=== PATIENT | male | born 1965 ===

== ENCOUNTER 2017-01-30 05:04 | Emergency (ER) | payer MEDICAID, OTHER ==
[2017-01-30 05:04] VITALS: BMI 33.0
[2017-01-30 05:20] VITALS: BP 150/77; PULSE 88; RESP 16; TEMP 97.6; O2SAT 97
[2017-01-30] MEDS ORDERED: Sodium Chloride 0.9% 1,000 ML IV STA (05:30)
--- NOTE | 2017-01-30 05:53 | ED PDOC ---
HPI: Back Time Seen by Provider: 01/30/17 05:13 Chief Complaint (Nursing): Back Pain Chief Complaint (Provider): Right flank pain History Per: Patient History/Exam Limitations: no limitations Onset/Duration Of Symptoms: Days (1 day) Current Symptoms Are (Timing): Still Present Pain Scale Rating Of: 7 Additional Complaint(s): Ruddy Dorantes, a 51 year old male, with a PMHx of hypertension and a cardiac arrhythmia defibrillator presents to the ED with right flank pain he has been experiencing since yesterday(01/29/2017) at 1pm. The patient states that the pain has become progressively worse and rates the pain as a 7/10 on the pain scale. The patient has been able to urinate. Denies nausea, vomiting, cough, diarrhea, shortness of breath, fever and chest pain. PMD: Aleks Michael - Risk Factors AAA Risk Factors: Pos: Hypertension Past Medical History Reviewed: Historical Data, Nursing Documentation, Vital Signs Vital Signs: Last Vital Signs Temp 97.6 F 01/30/17 05:16 Pulse 88 01/30/17 05:16 Resp 16 01/30/17 05:16 BP 150/77 01/30/17 05:16 Pulse Ox 97 01/30/17 05:16 - Medical History PMH: Cardia Arrhythmia, CHF, HTN, Hypercholesterolemia Denies: Alzheimer's Disease, Asthma, Atrial Fibrillation, Diabetes, HIV, Mitral Valve Prolapse, Peripheral Edema, Chronic Kidney Disease - Surgical History Surgical History: Back Surgery, Pacemaker (AICD/PM) - Family History Family History: States: Unknown Family Hx - Social History Current smoker - smoking cessation education provided: No Ex-Smoker (has not smoked in the last 12 months): No Alcohol: None Drugs: Denies - Immunization History Hx Tetanus Toxoid Vaccination: Yes Hx Influenza Vaccination: No Hx Pneumococcal Vaccination: Yes - Home Medications Home Medications: Ambulatory Orders Medication Instructions Recorded Atorvastatin [Lipitor] 40 mg PO HS 03/30/16 Cyclobenzaprine [Cyclobenzaprine 10 mg PO TID #30 tab 03/30/16 HCl] Metoprolol Succinate [Toprol XL] 100 mg PO DAILY 03/30/16 Naproxen [Naprosyn] 500 mg PO BID PRN #20 tablet 03/30/16 Propafenone HCl [Rythmol] 225 mg PO DAILY 03/30/16 Valsartan/Hydrochlorothiazide 1 tab PO DAILY 03/30/16 [Valsartan-Hctz 320-25 mg Tab] Ibuprofen [Motrin] 400 mg PO Q6 #30 tab 11/19/16 Ciprofloxacin [Cipro] 500 mg PO Q12 #14 tab 01/30/17 traMADol [Ultram] 50 mg PO Q6 PRN #12 tab 01/30/17 - Allergies Allergies/Adverse Reactions: Allergies Allergy/AdvReac Type Severity Reaction Status Date / Time No Known Allergies Allergy Verified 02/14/16 14:53 Review of Systems ROS Statement: Except As Marked, All Systems Reviewed And Found Negative Constitutional: Negative for: Fever Cardiovascular: Negative for: Chest Pain Respiratory: Negative for: Cough, Shortness of Breath Gastrointestinal: Negative for: Nausea, Vomiting, Diarrhea Musculoskeletal: Positive for: Other (Right flank pain) Physical Exam - Reviewed Nursing Documentation Reviewed: Yes Vital Signs Reviewed: Yes - Physical Exam Appears: Positive for: Uncomfortable Head Exam: Positive for: ATRAUMATIC, NORMOCEPHALIC Skin: Positive for: Normal Color, Warm, Dry Eye Exam: Positive for: Normal appearance, EOMI, PERRL ENT: Positive for: Normal ENT Inspection Neck: Positive for: Normal, Painless ROM, Supple Cardiovascular/Chest: Positive for: Regular Rate, Rhythm, Chest Non Tender. Negative for: Tachycardia Respiratory: Positive for: Normal Breath Sounds. Negative for: Wheezing, Respiratory Distress Gastrointestinal/Abdominal: Positive for: Normal Exam, Bowel Sounds, Soft. Negative for: Tenderness Back: Positive for: Normal Inspection. Negative for: L CVA Tenderness, R CVA Tenderness Extremity: Positive for: Normal ROM. Negative for: Tenderness, Swelling Neurologic/Psych: Positive for: Alert, Oriented - Laboratory Results Result Diagrams: 01/30/17 05:49 01/30/17 05:49 - ECG O2 Sat by Pulse Oximetry: 97 (RA) Pulse Ox Interpretation: Normal Medical Decision Making Medical Decision Makin Initial Impression: Right flank pain Initial Pain: * CT ABD & PELVIS w/o PO or IV contrast * EKG * CMP * CBC * Urine diptick * Urinalysis * NS 1000ml IV 1000 mls/hr * Toradol 10mg IV * reevaluation 0617 CT Abdomen and Pelvis Without Intravenous Contrast IMPRESSION: No acute findings. Labs reviewed no clinically significant abnormalities. Patient reports some improvement in pain. Given findings or perinephric stranding, will treat with IV rocephin. Patient will be discharged home with referral to urology and an Rx for ciproflaxin and doltram. Upon provider reevaluation patient is feeling better, is medically stable, and requires no further treatment in the ED at this time. Patient is stable for discharge. Dx: Renal Colic Condition: Stable Rx: Ciproflaxin and Ultram Referral to Urology Scribe Attestation Documented by Clari Coronel acting as a scribe for Jaiden Jim MD. Provider Attestation All medical record entries made by the Scribe were at my direction and personally dictated by me. I have reviewed the chart and agree that the record accurately reflects my personal performance of the history, physical exam, medical decision making, and the department course for this patient. I have also personally directed, reviewed, and agree with the discharge instructions and disposition. Disposition - Clinical Impression Clinical Impression: Renal colic on right side - Disposition Referrals: Yeny Jolly MD [Medical Doctor] - Aleks Michael MD [Primary Care Provider] - Disposition Time: 07:00 Condition: STABLE Prescriptions: Ciprofloxacin [Cipro] 500 mg PO Q12 #14 tab traMADol [Ultram] 50 mg PO Q6 PRN #12 tab PRN Reason: flank pain Instructions: Renal Colic (ED)
[2017-01-30 06:03] LABS: RBC URINE 1 /hpf (0-3); URINE BILIRUBIN NEGATIVE (NEGATIVE); URINE BLOOD NEGATIVE (NEGATIVE); URINE COLOR YELLOW (YELLOW); URINE GLUCOSE (UA) NEG (Normal); URINE KETONE NEGATIVE (NEGATIVE); URINE LEUKOCYTE ESTERASE NEG Leu/uL (Negative); URINE PROTEIN NEGATIVE (NEGATIVE); URINE UROBILINOGEN 0.2-1.0 mg/dL (0.2-1.0); WBC URINE < 1 /hpf (0-5)
[2017-01-30 06:15] LABS: BASO # 0.1 K/uL (0.0-0.2); BASO % 0.8 % (0.0-2.0); EOS # 0.3 K/uL (0.0-0.7); EOS % 4.2 % (0.0-4.0); LYMPH # 2.2 K/uL (1.0-4.3); MEAN CELL VOLUME 86.8 fl (80.0-94.0); MEAN CORPUSCULAR HEMOGLOBIN 28.9 pg (27.0-31.0); MEAN CORPUSCULAR HGB CONC 33.3 g/dL (33.0-37.0); MEAN PLATELET VOLUME 9.4 fl (7.2-11.7); MONO # 0.8 K/uL (0.0-0.8); NEUT # 4.2 K/uL (1.8-7.0); NRBC % 0.1 % (0.0-0.0); RED CELL DISTRIBUTION WIDTH 12.8 % (11.5-14.5); WHITE BLOOD COUNT 7.6 K/uL (4.8-10.8)
--- NOTE | 2017-01-30 06:18 | CT ---
EXAM: CT Abdomen and Pelvis Without Intravenous Contrast CLINICAL HISTORY: 51 years old, male; Pain; Abdominal pain; Flank; Right; Additional info: Renal colic TECHNIQUE: Axial computed tomography images of the abdomen and pelvis without intravenous contrast. This CT exam was performed using one or more of the following dose reduction techniques: automated exposure control, adjustment of the mA and/or kV according to patient size, and/or use of iterative reconstruction technique. Coronal and sagittal reformatted images were created and reviewed. EXAM DATE/TIME: 01/30/2017 5:29 AM COMPARISON: CT - ABD PELVIS PO IV CONTRAST 11/24/2015 12:23:19 AM FINDINGS: The liver, spleen, gallbladder and pancreas appear grossly normal on this non-contrast study. Minimal nonspecific perinephric stranding. No hydronephrosis. No obstructing calculi. Pelvic phleboliths. The bowel appears grossly normal. A normal appendix is identified coronal images 59 through 67. IMPRESSION: No acute findings.
[2017-01-30 06:23] LABS: ALB/GLOB RATIO 1.1 (1.0-2.1); ALKALINE PHOSPHATASE 93 U/L (38-126); ALT/SGPT 39 U/L (21-72); AST/SGOT 38 U/L (17-59); BILIRUBIN,TOTAL 0.4 mg/dl (0.2-1.3); BLOOD UREA NITROGEN 18 mg/dl (9-20); CALCIUM 8.8 mg/dL (8.4-10.2); CARBON DIOXIDE 27 mmol/L (22-30); CHLORIDE 101 mmol/L (98-107); GFR AFRICAN-AMERICAN > 60; GLUCOSE,RANDOM 116 mg/dL (75-110); POTASSIUM 4.1 MMOL/L (3.6-5.0); SODIUM 138 mmol/l (132-148)
[2017-01-30] MEDS ORDERED: cefTRIAXone (Rocephin) 1 gm Inj ONE (06:46)
--- NOTE | 2017-01-30 19:10 | CARD ---
APPROVED REPORT EKG Measurement Heart [id number] <Conclusion> Atrial-sensed ventricular-paced rhythm Abnormal ECG
== END 2017-01-30 08:16 | disposition home or self-care (01) ==
LOC: H.ER 05:04
DX: N23 Unspecified renal colic (principal); I50.9 Heart failure, unspecified; I10 Essential (primary) hypertension; E78.00 Pure hypercholesterolemia, unspecified; Z87.891 Personal history of nicotine dependence; Z95.0 Presence of cardiac pacemaker; Z95.810 Presence of automatic (implantable) cardiac defibrillator

== ENCOUNTER 2017-03-15 09:26 | Emergency (ER) | payer OTHER ==
[2017-03-15 09:26] VITALS: BMI 33.0
[2017-03-15 09:52] VITALS: BP 131/75; PULSE 71; RESP 18; TEMP 98.1; O2SAT 97
[2017-03-15] MEDS ORDERED: Sodium Chloride 0.9% 1,000 ML IV STA (11:02)
--- NOTE | 2017-03-15 11:04 | ED PDOC ---
HPI: Back Time Seen by Provider: 03/15/17 09:58 Chief Complaint (Nursing): Back Pain Chief Complaint (Provider): Back Pain History Per: Patient Additional Complaint(s): 51 yo male, no PMH, presents to ED with complaints of c/o recurring back pain, R flank pain. Pt seen and evaluated in the ED ~ 7 weeks ago with the same and was diagnosed with a UTI. Pt reports that the pain improved slightly with antibiotics; however, as of 3 days ago returned and is more severe. No fever or chills. no nausea or vomiting. No concerns for STI . No UTI like symptoms Past Medical History Reviewed: Nursing Documentation, Vital Signs Vital Signs: Last Vital Signs Temp 98.1 F 03/15/17 09:51 Pulse 71 03/15/17 09:51 Resp 18 03/15/17 09:51 BP 131/75 03/15/17 09:51 Pulse Ox 97 03/15/17 09:51 - Medical History PMH: Cardia Arrhythmia, CHF, HTN, Hypercholesterolemia Denies: Alzheimer's Disease, Asthma, Atrial Fibrillation, Diabetes, HIV, Mitral Valve Prolapse, Peripheral Edema, Chronic Kidney Disease - Surgical History Surgical History: Back Surgery, Pacemaker (AICD/PM) - Family History Family History: States: Unknown Family Hx - Living Arrangements Living Arrangements: With Family - Social History Current smoker - smoking cessation education provided: No Alcohol: None Drugs: Denies - Immunization History Hx Tetanus Toxoid Vaccination: Yes Hx Influenza Vaccination: No Hx Pneumococcal Vaccination: Yes - Home Medications Home Medications: Ambulatory Orders Medication Instructions Recorded Atorvastatin [Lipitor] 40 mg PO HS 03/30/16 Cyclobenzaprine [Cyclobenzaprine 10 mg PO TID #30 tab 03/30/16 HCl] Metoprolol Succinate [Toprol XL] 100 mg PO DAILY 03/30/16 Naproxen [Naprosyn] 500 mg PO BID PRN #20 tablet 03/30/16 Propafenone HCl [Rythmol] 225 mg PO DAILY 03/30/16 Valsartan/Hydrochlorothiazide 1 tab PO DAILY 03/30/16 [Valsartan-Hctz 320-25 mg Tab] Ibuprofen [Motrin] 400 mg PO Q6 #30 tab 11/19/16 Ciprofloxacin [Cipro] 500 mg PO Q12 #14 tab 01/30/17 traMADol [Ultram] 50 mg PO Q6 PRN #12 tab 01/30/17 Cyclobenzaprine [Cyclobenzaprine 10 mg PO TID #20 tab 03/15/17 HCl] Ibuprofen [Motrin] 600 mg PO Q6 #20 tab 03/15/17 - Allergies Allergies/Adverse Reactions: Allergies Allergy/AdvReac Type Severity Reaction Status Date / Time No Known Allergies Allergy Verified 03/15/17 10:04 Review of Systems ROS Statement: Except As Marked, All Systems Reviewed And Found Negative Gastrointestinal: Negative for: Nausea, Vomiting, Abdominal Pain Genitourinary Male: Negative for: Dysuria, Frequency Musculoskeletal: Positive for: Back Pain Physical Exam - Reviewed Nursing Documentation Reviewed: Yes Vital Signs Reviewed: Yes - Physical Exam Appears: Positive for: Well, Non-toxic, No Acute Distress Head Exam: Positive for: ATRAUMATIC, NORMAL INSPECTION, NORMOCEPHALIC Skin: Positive for: Normal Color, Warm, DRY Eye Exam: Positive for: EOMI, Normal appearance, PERRL ENT: Positive for: Normal ENT Inspection Neck: Positive for: Normal, Painless ROM Cardiovascular/Chest: Positive for: Regular Rate, Rhythm Respiratory: Positive for: CNT, Normal Breath Sounds Gastrointestinal/Abdominal: Positive for: Normal Exam, Bowel Sounds, Soft. Negative for: Tenderness Back: Positive for: Normal Inspection, R CVA Tenderness. Negative for: L CVA Tenderness Extremity: Positive for: Normal ROM Neurologic/Psych: Positive for: Alert, Oriented - Laboratory Results Result Diagrams: 03/15/17 11:20 03/15/17 11:20 - ECG O2 Sat by Pulse Oximetry: 97 Medical Decision Making Medical Decision Making: IV access established and treatment initiated with Toradol IV Pt reports feeling improved on re-eval Labs resulted and reviewed with pt who demonstrated full understanding CT: Negative Pt educated on all results. stable for discharge at this time Disposition - Clinical Impression Clinical Impression: Mid back pain - Patient ED Disposition Is Patient to be Admitted: No - Disposition Disposition: Routine/Home Disposition Time: 14:08 Condition: STABLE Prescriptions: Cyclobenzaprine [Cyclobenzaprine HCl] 10 mg PO TID #20 tab Ibuprofen [Motrin] 600 mg PO Q6 #20 tab Instructions: Back Pain (ED) Forms: [employer] (Norwegian) - POA Present On Arrival: None
[2017-03-15 11:33] LABS: BASO % 0.7 % (0.0-2.0); EOS # 0.2 K/uL (0.0-0.7); EOS % 2.9 % (0.0-4.0); HEMOGLOBIN 13.3 g/dL (12.0-18.0); LYMPH # 2.3 K/uL (1.0-4.3); MEAN CELL VOLUME 86.7 fl (80.0-94.0); MEAN CORPUSCULAR HEMOGLOBIN 29.1 pg (27.0-31.0); MEAN CORPUSCULAR HGB CONC 33.6 g/dL (33.0-37.0); MEAN PLATELET VOLUME 9.1 fl (7.2-11.7); MONO # 0.6 K/uL (0.0-0.8); MONO % 9.2 % (0.0-10.0); NEUT # 3.7 K/uL (1.8-7.0); NEUT % 54.2 % (50.0-75.0); NRBC % 0.1 % (0.0-0.0); RBC 4.55 Mil/uL (4.40-5.90); RED CELL DISTRIBUTION WIDTH 12.9 % (11.5-14.5); WHITE BLOOD COUNT 6.9 K/uL (4.8-10.8)
[2017-03-15 11:41] LABS: ALB/GLOB RATIO 1.2 (1.0-2.1); ALBUMIN 4.4 g/dL (3.5-5.0); ALT/SGPT 55 U/L (21-72); AST/SGOT 33 U/L (17-59); BLOOD UREA NITROGEN 14 mg/dl (9-20); CALCIUM 9.3 mg/dL (8.4-10.2); GFR AFRICAN-AMERICAN > 60; GFR NON-AFRICAN AMERICAN > 60
[2017-03-15 12:17] LABS: URINE BILIRUBIN NEGATIVE (NEGATIVE); URINE BLOOD NEGATIVE (NEGATIVE); URINE CLARITY CLEAR (Clear); URINE COLOR YELLOW (YELLOW); URINE GLUCOSE (UA) NEG (Normal); URINE LEUKOCYTE ESTERASE NEG Leu/uL (Negative); URINE NITRATE NEGATIVE (NEGATIVE); URINE PROTEIN NEGATIVE (NEGATIVE); URINE UROBILINOGEN 0.2-1.0 mg/dL (0.2-1.0)
--- NOTE | 2017-03-15 13:10 | CT ---
PROCEDURE: CT Abdomen and Pelvis without intravenous contrast HISTORY: r/o renal stone COMPARISON: 01/30/2017. CT abdomen and pelvis. TECHNIQUE: Unenhanced study. Neither oral nor intravenous contrast administered. . Radiation dose: Total exam DLP = 966.08 mGy-cm. This CT exam was performed using one or more of the following dose reduction techniques: Automated exposure control, adjustment of the mA and/or kV according to patient size, and/or use of iterative reconstruction technique. FINDINGS: LOWER THORAX: Unremarkable. LIVER: Hepatic steatosis. No focal masses. No intrahepatic bile duct dilatation or perihepatic ascites. GALLBLADDER AND BILE DUCTS: Unremarkable. PANCREAS: Unremarkable. No gross lesion or ductal dilatation. SPLEEN: Unremarkable. ADRENALS: Unremarkable. No mass. KIDNEYS AND URETERS: Unremarkable. No hydronephrosis. No solid mass. VASCULATURE: Unremarkable. No aortic aneurysm. BOWEL: Unremarkable. No obstruction. No gross mural thickening. APPENDIX: Unremarkable. Normal appendix. PERITONEUM: Unremarkable. No free fluid. No free air. LYMPH NODES: Unremarkable. No enlarged lymph nodes. BLADDER: Unremarkable. REPRODUCTIVE: Unremarkable. BONES: No acute fracture. OTHER FINDINGS: None. IMPRESSION: No acute findings related to/accounting for the clinical presentation.
== END 2017-03-15 14:10 | disposition home or self-care (01) ==
LOC: H.ER 09:26
DX: M54.9 Dorsalgia, unspecified (principal); E78.00 Pure hypercholesterolemia, unspecified; I11.0 Hypertensive heart disease with heart failure; I50.9 Heart failure, unspecified; Z95.0 Presence of cardiac pacemaker; Z95.810 Presence of automatic (implantable) cardiac defibrillator

== ENCOUNTER 2017-10-15 11:12 | Emergency (ER) | payer MEDICAID, OTHER ==
[2017-10-15 11:13] VITALS: BMI 33.0
[2017-10-15 11:22] VITALS: BP 136/75; PULSE 91; RESP 20; TEMP 98.3; O2SAT 97
[2017-10-15] MEDS ORDERED: guaiFENesin 200 mg/10 ml Syrup UD PO ONE (11:47)
[2017-10-15] MEDS ORDERED: Albuterol-Ipratrop 3 mg / 0.5 (3 ml) UD ONE (11:55)
[2017-10-15] MEDS: Albuterol-Ipratrop 3 mg / 0.5 (3 ml) UD IH SCH ×2 (11:55→12:22)
--- NOTE | 2017-10-15 12:18 | RAD ---
HISTORY: cough COMPARISON: Chest radiograph dated 06/29/2016. TECHNIQUE: Chest PA and lateral FINDINGS: LUNGS: No active pulmonary disease. PLEURA: No significant pleural effusion identified. No pneumothorax apparent. CARDIOVASCULAR: Left subclavian access AICD/ pacemaker redemonstrated. Cardiomediastinal silhouette stably prominent. OSSEOUS STRUCTURES: Unchanged. VISUALIZED UPPER ABDOMEN: Normal. OTHER FINDINGS: None. IMPRESSION: No active disease.
--- NOTE | 2017-10-15 13:42 | ED PDOC ---
HPI: General Adult Time Seen by Provider: 10/15/17 11:39 Chief Complaint (Nursing): Flu-like Symptoms Chief Complaint (Provider): Flu-like Symptoms History Per: Patient History/Exam Limitations: no limitations Onset/Duration Of Symptoms: Days (x 2 weeks) Current Symptoms Are (Timing): Still Present Additional Complaint(s): Patient complains of cough beginning 2 weeks ago and associated with fever, chills, headache, chest pain, congestion, and body aches. He saw her doctor who gave her cough medication and levaquin, which she finished 2 days ago. Otherwise : (-) dyspnea, (-) hemoptysis, (-) upper back pain, (-) travel, (-) recent prolonged immobility. PMD: Aleks Michael Past Medical History Reviewed: Historical Data, Nursing Documentation, Vital Signs Vital Signs: Last Vital Signs Temp 98.3 F 10/15/17 11:17 Pulse 91 H 10/15/17 11:17 Resp 20 10/15/17 11:17 BP 136/75 10/15/17 11:17 Pulse Ox 97 10/15/17 13:47 - Medical History PMH: Cardia Arrhythmia, CHF, HTN, Hypercholesterolemia Denies: Alzheimer's Disease, Asthma, Atrial Fibrillation, Diabetes, HIV, Mitral Valve Prolapse, Peripheral Edema, Chronic Kidney Disease - Surgical History Surgical History: Back Surgery, Pacemaker (AICD/PM) - Family History Family History: States: Unknown Family Hx - Immunization History Hx Tetanus Toxoid Vaccination: Yes Hx Influenza Vaccination: No Hx Pneumococcal Vaccination: Yes - Home Medications Home Medications: Ambulatory Orders Medication Instructions Recorded Atorvastatin [Lipitor] 40 mg PO HS 03/30/16 Cyclobenzaprine [Cyclobenzaprine 10 mg PO TID #30 tab 03/30/16 HCl] Metoprolol Succinate [Toprol XL] 100 mg PO DAILY 03/30/16 Naproxen [Naprosyn] 500 mg PO BID PRN #20 tablet 03/30/16 Propafenone HCl [Rythmol] 225 mg PO DAILY 03/30/16 Valsartan/Hydrochlorothiazide 1 tab PO DAILY 03/30/16 [Valsartan-Hctz 320-25 mg Tab] Ibuprofen [Motrin] 400 mg PO Q6 #30 tab 11/19/16 Ciprofloxacin [Cipro] 500 mg PO Q12 #14 tab 01/30/17 traMADol [Ultram] 50 mg PO Q6 PRN #12 tab 01/30/17 Cyclobenzaprine [Cyclobenzaprine 10 mg PO TID #20 tab 03/15/17 HCl] Ibuprofen [Motrin] 600 mg PO Q6 #20 tab 03/15/17 Cyclobenzaprine [Cyclobenzaprine 10 mg PO BID PRN #15 tab 06/01/17 HCl] Naproxen [Naprosyn Tab] 375 mg PO BID PRN #20 tab 06/01/17 Albuterol 0.083% [Albuterol 3 ml IH Q4 #100 neb 10/15/17 Sulfate 3 Ml] Guaifenesin 400 mg PO QID #20 tablet 10/15/17 Nebulizer [Aeroeclipse II] 1 each MC DAILY #1 each 10/15/17 predniSONE [predniSONE Tab] 40 mg PO DAILY #8 tab 10/15/17 - Allergies Allergies/Adverse Reactions: Allergies Allergy/AdvReac Type Severity Reaction Status Date / Time No Known Allergies Allergy Verified 06/01/17 10:02 Review of Systems ROS Statement: Except As Marked, All Systems Reviewed And Found Negative Constitutional: Positive for: Fever, Chills, Other (body aches) ENT: Positive for: Nose Congestion Cardiovascular: Positive for: Chest Pain Respiratory: Positive for: Cough Physical Exam - Reviewed Nursing Documentation Reviewed: Yes Vital Signs Reviewed: Yes - Physical Exam Comments: SKIN: Warm, dry; (-) cyanosis. EYES: (-) conjunctival pallor. ENMT: Mucous membranes moist. Airway patent: (-) stridor. Pharynx: (-) swelling, (-) erythema, (-) exudate. NECK: (-) tenderness, (-) stiffness, (-) lymphadenopathy. CHEST AND RESPIRATORY: (-) rhonchi, (-) rales, (+) wheezes b/l, (-) pleural rub ; decreased breath sounds bilaterally. HEART AND CARDIOVASCULAR: (-) irregularity; (-) murmur, (-) gallop. ABDOMEN AND GI: Soft; (-) tenderness. EXTREMITIES: (-) deformity; (-) edema. NEURO AND PSYCH: Mental status as above. Cranial nerves grossly intact; strength symmetric. - ECG O2 Sat by Pulse Oximetry: 97 (RA) Pulse Ox Interpretation: Normal Medical Decision Making Medical Decision Making: Time: 11:41 Initial Impression: Cough, Fever Initial Plan: --Chest XR --Duoneb --Robitussin --Prednisolone --Flu Swab Chest XR: NAD, as read by JANET Flu Swab: Negative Reevaluation: --Patient feels better and is comfortable going home. --He denies chest pain or shortness of breath. Lungs clear to auscultation. Disposition: Based on history, exam and diagnostic results plan will be for outpt f/u w/ Dx of bronchitis. Advised to follow up with primary care physician in 1-2 days without fail. Advised to take medication as prescribed. Return to the emergency room at any time for any new or worsening symptoms. Patient states he fully agrees with and understands discharge instructions. States that he agrees with the plan and disposition. Verbalized and repeated discharge instructions and plan. I have given the patient opportunity to ask any additional questions. Scribe Attestation: Documented by Manuel Uribe, acting as a scribe for Karen Segal PA-C. Provider Scribe Attestation: All medical record entries made by the Scribe were at my direction and personally dictated by me. I have reviewed the chart and agree that the record accurately reflects my personal performance of the history, physical exam, medical decision making, and the department course for this patient. I have also personally directed, reviewed, and agree with the discharge instructions and disposition. Disposition - Clinical Impression Clinical Impression: Bronchitis - Patient ED Disposition Is Patient to be Admitted: No Counseled Patient/Family Regarding: Studies Performed, Diagnosis, Need For Followup, Rx Given - Disposition Disposition: Routine/Home Disposition Time: 12:30 Condition: IMPROVED Additional Instructions: Thank you for letting us take care of you today. You were treated for acute bronchitis. The emergency medical care you received today was directed at your acute symptoms. If you were prescribed any medication, please fill it and take as directed. It may take several days for your symptoms to resolve. Return to the Emergency Department if your symptoms worsen, do not improve, or if you have any other problems. Please contact your doctor in 2 days for re-evaluation and follow up. Bring any paperwork you were given at discharge with you along with any medications you are taking to your follow up visit. Our treatment cannot replace ongoing medical care by a primary care provider (PCP) outside of the emergency department. Thank you for allowing the [facility] team to be part of your care today. Prescriptions: Albuterol 0.083% [Albuterol Sulfate 3 Ml] 3 ml IH Q4 #100 neb Guaifenesin 400 mg PO QID #20 tablet Nebulizer [Aeroeclipse II] 1 each MC DAILY #1 each predniSONE [predniSONE Tab] 40 mg PO DAILY #8 tab Instructions: Acute Bronchitis (ED) Forms: [employer] (Tristanian), [facility] ED School/Work Excuse - PA / PLATE FORMER / Resident Statement MD/DO has reviewed & agrees with the documentation as recorded.
== END 2017-10-15 13:43 | disposition home or self-care (01) ==
LOC: H.ER 11:12
DX: J40 Bronchitis, not specified as acute or chronic (principal); E78.00 Pure hypercholesterolemia, unspecified; I10 Essential (primary) hypertension; I50.9 Heart failure, unspecified; Z95.0 Presence of cardiac pacemaker; Z95.810 Presence of automatic (implantable) cardiac defibrillator

== ENCOUNTER 2017-11-17 06:35 | Emergency (ER) | payer MEDICAID, OTHER ==
[2017-11-17 06:35] VITALS: BMI 33.0
--- NOTE | 2017-11-17 08:16 | ED PDOC ---
HPI: Chest Pain Time Seen by Provider: 11/17/17 07:13 Chief Complaint (Nursing): Chest Pain History Per: Patient (According to this patient who has h/o viral myocardiopathy and AICD who presents because of acute onset of sharp left lower CP that started this morning. It has been on/off since onset. It is localized and lasts about 1 minute. they resolve without treatment. ) History/Exam Limitations: no limitations Past Medical History Reviewed: Historical Data, Nursing Documentation, Vital Signs Vital Signs: Last Vital Signs Temp 98.2 F 11/17/17 06:50 Pulse 76 11/17/17 11:11 Resp 18 11/17/17 11:11 BP 136/86 11/17/17 11:11 Pulse Ox 96 11/17/17 11:11 - Medical History PMH: Cardia Arrhythmia, CHF, Gastritis, HTN, Hypercholesterolemia - Surgical History Surgical History: Back Surgery, Endoscopy, Pacemaker (AICD/PM) - Family History Family History: States: Unknown Family Hx - Living Arrangements Living Arrangements: With Family - Immunization History Hx Tetanus Toxoid Vaccination: Yes Hx Influenza Vaccination: No Hx Pneumococcal Vaccination: Yes - Home Medications Home Medications: Ambulatory Orders Medication Instructions Recorded Atorvastatin [Lipitor] 40 mg PO HS 03/30/16 Metoprolol Succinate [Toprol XL] 100 mg PO DAILY 03/30/16 Propafenone HCl [Rythmol] 225 mg PO Q12 03/30/16 Valsartan/Hydrochlorothiazide 1 tab PO DAILY 03/30/16 [Valsartan-Hctz 320-25 mg Tab] Albuterol 0.083% [Albuterol 0.083% 3 ml IH Q4H PRN 11/17/17 Inhal Jaclyn (2.5 mg/3 ml) UD] Pantoprazole Sodium [Protonix] 40 mg PO DAILY 11/17/17 - Allergies Allergies/Adverse Reactions: Allergies Allergy/AdvReac Type Severity Reaction Status Date / Time No Known Allergies Allergy Verified 11/17/17 06:50 Review of Systems ROS Statement: Except As Marked, All Systems Reviewed And Found Negative Constitutional: Negative for: Fever, Chills Cardiovascular: Positive for: Chest Pain. Negative for: Palpitations Respiratory: Negative for: Cough, Shortness of Breath Gastrointestinal: Positive for: Nausea. Negative for: Vomiting Neurological: Positive for: Dizziness Physical Exam - Reviewed Nursing Documentation Reviewed: Yes Vital Signs Reviewed: Yes - Physical Exam Appears: Positive for: Well, Non-toxic, No Acute Distress Head Exam: Positive for: ATRAUMATIC, NORMAL INSPECTION, NORMOCEPHALIC Skin: Positive for: Normal Color, Warm, DRY Eye Exam: Positive for: Normal appearance ENT: Positive for: Normal ENT Inspection Neck: Positive for: Normal Cardiovascular/Chest: Positive for: Regular Rate, Rhythm. Negative for: Chest Non Tender (tenderness to palpation left lower rib cage on rib.) Respiratory: Positive for: CNT, Normal Breath Sounds Gastrointestinal/Abdominal: Positive for: Normal Exam, Bowel Sounds, Soft. Negative for: Tenderness Back: Positive for: Normal Inspection Extremity: Positive for: Normal ROM Neurologic/Psych: Positive for: Alert, Oriented - Laboratory Results Result Diagrams: 11/17/17 08:25 11/17/17 08:25 - ECG O2 Sat by Pulse Oximetry: 98 Medical Decision Making Medical Decision Making: patient without distress. labs EKG and chest x-ray WNL. Will d/c home and followup with PMD and cardiology Disposition - Clinical Impression Clinical Impression: Atypical chest pain - Patient ED Disposition Is Patient to be Admitted: No Doctor Will See Patient In The: Office Counseled Patient/Family Regarding: Diagnosis, Need For Followup - Disposition Referrals: Aleks Michael MD [Family Provider] - Disposition: Routine/Home Disposition Time: 14:00 Condition: STABLE Instructions: Chest Pain That Is Not Caused by the Heart (DC) Forms: [employer] (Yakut) - POA Present On Arrival: None
[2017-11-17 08:34] LABS: BASO % 0.5 % (0.0-2.0); EOS # 0.2 K/uL (0.0-0.7); EOS % 2.7 % (0.0-4.0); HEMOGLOBIN 14.7 g/dL (12.0-18.0); LYMPH # 1.7 K/uL (1.0-4.3); LYMPH % 24.8 % (20.0-40.0); MEAN CELL VOLUME 87.1 fl (80.0-94.0); MEAN CORPUSCULAR HEMOGLOBIN 29.1 pg (27.0-31.0); MEAN CORPUSCULAR HGB CONC 33.4 g/dL (33.0-37.0); MONO # 0.6 K/uL (0.0-0.8); MONO % 8.7 % (0.0-10.0); NEUT # 4.3 K/uL (1.8-7.0); NEUT % 63.3 % (50.0-75.0); NRBC % 0.1 % (0.0-0.0); RBC 5.06 Mil/uL (4.40-5.90); RED CELL DISTRIBUTION WIDTH 13.3 % (11.5-14.5); WHITE BLOOD COUNT 6.8 K/uL (4.8-10.8)
[2017-11-17 08:43] LABS: BLOOD UREA NITROGEN 16 mg/dl (9-20); CALCIUM 9.8 mg/dL (8.4-10.2); GFR AFRICAN-AMERICAN > 60; GFR NON-AFRICAN AMERICAN > 60
[2017-11-17 08:50] LABS: PARTIAL THROMBOPLASTIN TIME 31.3 Seconds (25.6-37.1); PROTHROMBIN TIME 11.5 Seconds (9.8-13.1)
--- NOTE | 2017-11-17 09:29 | RAD ---
HISTORY: left sided chest pain sharp q15m COMPARISON: Comparison made with prior chest radiograph 10/15/2017 TECHNIQUE: Chest PA and lateral FINDINGS: LUNGS: No active pulmonary disease. PLEURA: No significant pleural effusion identified. No pneumothorax apparent. CARDIOVASCULAR: Re- demonstrated is a multi lead pacemaker/ defibrillator unchanged. Heart size unchanged. OSSEOUS STRUCTURES: No significant abnormalities. VISUALIZED UPPER ABDOMEN: Normal. OTHER FINDINGS: None. IMPRESSION: No active disease.
--- NOTE | 2017-11-17 13:13 | CARD ---
APPROVED REPORT EKG Measurement Heart [id number] <Conclusion> Atrial-sensed ventricular-paced rhythm Abnormal ECG
[2017-11-17 14:36] VITALS: BP 138/80; PULSE 89; RESP 17; TEMP 98.4; O2SAT 99
== END 2017-11-17 14:30 | disposition home or self-care (01) ==
LOC: H.ER 06:35
DX: R07.89 Other chest pain (principal); E78.00 Pure hypercholesterolemia, unspecified; I11.0 Hypertensive heart disease with heart failure; I42.9 Cardiomyopathy, unspecified; Z95.0 Presence of cardiac pacemaker; Z95.810 Presence of automatic (implantable) cardiac defibrillator

== ENCOUNTER 2017-12-29 19:53 | Emergency (ER) | payer OTHER ==
[2017-12-29 19:53] VITALS: BMI 33.0
[2017-12-29 20:08] VITALS: BP 146/81; PULSE 64; RESP 18; TEMP 98.5; O2SAT 98
[2017-12-29] MEDS ORDERED: Oxycodone/Acetaminophen 5/325 mg Tab PO STA (21:23)
[2017-12-29] MEDS ORDERED: Oxycodone/Acetaminophen 5/325 mg Tab ONE (21:58)
--- NOTE | 2017-12-29 22:11 | ED PDOC ---
Upper Extremity Pain/Injury Time Seen by Provider: 12/29/17 20:09 Chief Complaint (Nursing): Upper Extremity Problem/Injury Chief Complaint (Provider): Upper Extremity Problem/Injury History Per: Patient History/Exam Limitations: no limitations Onset/Duration Of Symptoms: Days (x1) Current Symptoms Are (Timing): Still Present Additional Complaint(s): 52 year old male with medical history of HTN, CHF and HCL, presents to the emergency department for an evaluation of pain to his 2nd and 3rd digits of right hand with difficulty moving fingers. Patient states he was carrying a heavy bag of salt over his right shoulder earlier today when he lost control of bag as it fell backwards, pulling his 2nd and 3rd digits of right hand. He also reports a history of bilateral tendon repair [address] Escobar. PMD: Aleks Michael MD Past Medical History Reviewed: Historical Data, Nursing Documentation, Vital Signs Vital Signs: Last Vital Signs Temp 98.5 F 12/29/17 20:04 Pulse 64 12/29/17 20:04 Resp 18 12/29/17 20:04 BP 146/81 12/29/17 20:04 Pulse Ox 98 12/29/17 20:04 - Medical History PMH: Cardia Arrhythmia, CHF, Gastritis, HTN, Hypercholesterolemia Denies: Alzheimer's Disease, Atrial Fibrillation, Diabetes, HIV, Chronic Kidney Disease - Surgical History Surgical History: Back Surgery, Endoscopy, Pacemaker (AICD/PM) - Family History Family History: States: Unknown Family Hx - Social History Current smoker - smoking cessation education provided: No Ex-Smoker (has not smoked in the last 12 months): No Alcohol: None Drugs: Denies - Immunization History Hx Tetanus Toxoid Vaccination: Yes Hx Influenza Vaccination: No Hx Pneumococcal Vaccination: Yes - Home Medications Home Medications: Ambulatory Orders Medication Instructions Recorded Atorvastatin [Lipitor] 40 mg PO HS 03/30/16 Metoprolol Succinate [Toprol XL] 100 mg PO DAILY 03/30/16 Propafenone HCl [Rythmol] 225 mg PO Q12 03/30/16 Valsartan/Hydrochlorothiazide 1 tab PO DAILY 03/30/16 [Valsartan-Hctz 320-25 mg Tab] Albuterol 0.083% [Albuterol 0.083% 3 ml IH Q4H PRN 11/17/17 Inhal Jaclyn (2.5 mg/3 ml) UD] Pantoprazole Sodium [Protonix] 40 mg PO DAILY 11/17/17 Naproxen [Naprosyn] 500 mg PO BID PRN #14 tab 12/29/17 - Allergies Allergies/Adverse Reactions: Allergies Allergy/AdvReac Type Severity Reaction Status Date / Time No Known Allergies Allergy Verified 11/17/17 06:50 Review of Systems ROS Statement: Except As Marked, All Systems Reviewed And Found Negative Musculoskeletal: Positive for: Hand Pain (2nd and 3rd digits of right hand with difficulty moving digits) Physical Exam - Reviewed Nursing Documentation Reviewed: Yes Vital Signs Reviewed: Yes - Physical Exam Appears: Positive for: Non-toxic, Uncomfortable, In Acute Distress (mild) Pulses-Radial (R): 2+ Extremity: Positive for: Tenderness (right hand mildly), Capillary Refill (<2 seconds of all right-sided digits), Swelling (right hand mildly). Negative for : Other (flexion or extension of 2nd and 3rd digits/skin break/warmth/erythema) Neurologic/Psych: Positive for: Alert (x3), Oriented - ECG O2 Sat by Pulse Oximetry: 98 (RA) Pulse Ox Interpretation: Normal - Radiology X-Ray: Interpreted by Me (R hand x-ray) X-Ray Interpretation: No Acute Disease Medical Decision Making Medical Decision Making: Initial Impression: Right hand injury Initial Plan: * Percocet 5/325mg * Toradol 30mg IM * Xray hand (right) Time: 2122 --Finger immobilized in aluminum finger naif splint applied by Val rockwell and JANET. --Upon provider re-evaluation, patient is medically stable and requires no further treatment in the ED at this time. Case was discussed with Dr. Serrato who does not recommend emergent intervention at this time and advises patient to follow up with Dr. Escobar in office. Patient will be discharged home with Rx for Naprosyn 500mg. Counseling was provided and all questions were answered regarding diagnosis. There is agreement to discharge plan. Return if symptoms persist or worsen. Case d/w Dr. Rose Escobar who agrees with care and plan. Clinical Impression: Tendon injury Scribe Attestation: Documented by Meliza Anders, acting as a scribe for Jean Barragan PA-C. Provider Scribe Attestation: All medical record entries made by the Scribe were at my direction and personally dictated by me. I have reviewed the chart and agree that the record accurately reflects my personal performance of the history, physical exam, medical decision making, and the department course for this patient. I have also personally directed, reviewed, and agree with the discharge instructions and disposition. Disposition - Clinical Impression Clinical Impression: Tendon injury - Patient ED Disposition Is Patient to be Admitted: No Counseled Patient/Family Regarding: Studies Performed, Diagnosis, Need For Followup, Rx Given - Disposition Referrals: [facility] [Outside] Yves Serrato MD [Staff Provider] - Aleks Michael MD [Staff Provider] - Disposition: Routine/Home Disposition Time: 21:59 Condition: STABLE Additional Instructions: Follow up with Dr. Escobar, hand surgeon, for further evaluation. Return to ED immediately if symptoms worsen. Prescriptions: Naproxen [Naprosyn] 500 mg PO BID PRN #14 tab PRN Reason: Pain Instructions: Common Finger Injuries (DC) Forms: [facility] ([place]), [facility] School/Work Excuse Print Language: NICARAGUAN
--- NOTE | 2017-12-30 08:30 | RAD ---
PROCEDURE: Right Hand Radiographs. HISTORY: trauma COMPARISON: Right radiographs dated 11/19/2016. FINDINGS: BONES: No acute fracture. JOINTS: Unremarkable. SOFT TISSUES: Normal. OTHER FINDINGS: None. IMPRESSION: No demonstrated fracture or dislocation.
== END 2017-12-29 22:27 | disposition home or self-care (01) ==
LOC: H.ER 19:53
DX: S66.801A Unspecified injury of other specified muscles, fascia and tendons at wrist and hand level, right hand, initial encounter (principal); X50.9XXA Other and unspecified overexertion or strenuous movements or postures, initial encounter; Y92.89 Other specified places as the place of occurrence of the external cause; E78.00 Pure hypercholesterolemia, unspecified; I11.0 Hypertensive heart disease with heart failure; I50.9 Heart failure, unspecified; Z95.0 Presence of cardiac pacemaker; Z95.810 Presence of automatic (implantable) cardiac defibrillator
CPT/HCPCS: 73130; 96372; 99284; J1885

== ENCOUNTER 2018-02-10 18:48 | Observation (INO) | payer MEDICAID, OTHER ==
[2018-02-10 19:15] VITALS: BMI 38.4
[2018-02-10] MEDS ORDERED: Iohexol 240 (50 ml) PO ONE (20:11)
[2018-02-10] MEDS ORDERED: Morphine 4 MG/ML VIAL ONE (20:28)
[2018-02-10 20:54] LABS: BASO % 0.4 % (0.0-2.0); EOS # 0.4 K/uL (0.0-0.7); EOS % 3.8 % (0.0-4.0); HEMOGLOBIN 13.2 g/dL (12.0-18.0); LYMPH # 2.9 K/uL (1.0-4.3); LYMPH % 31.3 % (20.0-40.0); MEAN CELL VOLUME 87.2 fl (80.0-94.0); MEAN CORPUSCULAR HEMOGLOBIN 28.6 pg (27.0-31.0); MEAN CORPUSCULAR HGB CONC 32.8 g/dL (33.0-37.0); MEAN PLATELET VOLUME 8.8 fl (7.2-11.7); MONO # 0.9 K/uL (0.0-0.8); MONO % 9.8 % (0.0-10.0); NEUT % 54.7 % (50.0-75.0); NRBC % 0.1 % (0.0-0.0); RBC 4.63 Mil/uL (4.40-5.90); RED CELL DISTRIBUTION WIDTH 13.4 % (11.5-14.5); WHITE BLOOD COUNT 9.2 K/uL (4.8-10.8)
[2018-02-10 21:04] LABS: ALBUMIN 4.2 g/dL (3.5-5.0); ALT/SGPT 35 U/L (21-72); AST/SGOT 34 U/L (17-59); BLOOD UREA NITROGEN 19 mg/dl (9-20); CALCIUM 9.6 mg/dL (8.4-10.2); GFR AFRICAN-AMERICAN > 60; GFR NON-AFRICAN AMERICAN > 60; LIPASE 78 U/L (23-300)
--- NOTE | 2018-02-10 21:04 | ED PDOC ---
HPI: Abdomen Time Seen by Provider: 02/10/18 19:47 Chief Complaint (Nursing): Male Genitourinary Chief Complaint (Provider): right abdominal pain History Per: Patient History/Exam Limitations: no limitations Onset/Duration Of Symptoms: Days (02/10/18), Worse Since Current Symptoms Are (Timing): Constant Quality Of Discomfort: "Pain" Associated Symptoms: Nausea, Loss Of Appetite. denies: Fever, Vomiting, Diarrhea, Constipation, Urinary Symptoms Additional Complaint(s): 52 year old male with hypertension, high cholesterol, and back pain presents to the ED complaining of right abdominal pain onset at 10am today. States it is worse since onset but at 4pm it became worse and constant. Reports of associated symptoms of nausea and decreased appetite. Pain does not radiate to the back. Patient had colonoscopy and is able to drink and eat well as normal bowel movement. Denies vomiting, diarrhea, constipation, fever, or urinary symptoms. PMD: Aleks Michael I Past Medical History Reviewed: Historical Data, Nursing Documentation, Vital Signs Vital Signs: Last Vital Signs Temp 97.6 F 02/11/18 08:36 Pulse 63 02/11/18 08:36 Resp 20 02/11/18 08:36 BP 141/81 02/11/18 02:37 Pulse Ox 95 02/11/18 08:36 - Medical History PMH: Cardia Arrhythmia, CHF, Gastritis, HTN, Hypercholesterolemia Denies: Alzheimer's Disease, Atrial Fibrillation, Diabetes, HIV, Mitral Valve Prolapse, Peripheral Edema, Chronic Kidney Disease - Surgical History Surgical History: Back Surgery, Endoscopy, Pacemaker (AICD/PM) - Family History Family History: States: Unknown Family Hx, Hypertension - Social History Current smoker - smoking cessation education provided: No Alcohol: None Drugs: Denies - Immunization History Hx Tetanus Toxoid Vaccination: Yes Hx Influenza Vaccination: No Hx Pneumococcal Vaccination: Yes - Home Medications Home Medications: Ambulatory Orders Medication Instructions Recorded Atorvastatin [Lipitor] 40 mg PO DAILY 03/30/16 Metoprolol Succinate [Toprol XL] 100 mg PO DAILY 03/30/16 Propafenone HCl [Rythmol] 225 mg PO Q12 03/30/16 Valsartan/Hydrochlorothiazide 1 tab PO DAILY 03/30/16 [Valsartan-Hctz 320-25 mg Tab] Pantoprazole Sodium [Protonix] 40 mg PO DAILY 11/17/17 - Allergies Allergies/Adverse Reactions: Allergies Allergy/AdvReac Type Severity Reaction Status Date / Time No Known Allergies Allergy Verified 11/17/17 06:50 Review of Systems ROS Statement: Except As Marked, All Systems Reviewed And Found Negative (As per HPI, othwerwise negative) Constitutional: Negative for: Fever Gastrointestinal: Positive for: Nausea, Abdominal Pain (right-sided). Negative for: Vomiting, Diarrhea, Constipation Physical Exam - Reviewed Nursing Documentation Reviewed: Yes Vital Signs Reviewed: Yes - Physical Exam Appears: Positive for: Non-toxic, In Acute Distress (moderate, painful ) Head Exam: Positive for: ATRAUMATIC, NORMOCEPHALIC Skin: Positive for: Warm, Dry Eye Exam: Positive for: EOMI, PERRL ENT: Positive for: Normal ENT Inspection, Other (tacky mucous membrane) Neck: Positive for: Painless ROM, Supple Cardiovascular/Chest: Positive for: Regular Rate, Rhythm, Chest Non Tender. Negative for: Murmur Respiratory: Positive for: Normal Breath Sounds. Negative for: Respiratory Distress Gastrointestinal/Abdominal: Positive for: Tenderness (with palpation on right- side, periumbilical area), Distended (slightly). Negative for: Mass, Guarding, Other (mcburney point or reese point tenderness) Back: Positive for: Normal Inspection. Negative for: L CVA Tenderness, R CVA Tenderness Extremity: Positive for: Normal ROM. Negative for: Deformity Lymphatic: Negative for: Adenopathy Neurologic/Psych: Positive for: Alert, Oriented (x3). Negative for: Motor/ Sensory Deficits - Laboratory Results Result Diagrams: 02/11/18 08:40 02/11/18 08:40 - ECG O2 Sat by Pulse Oximetry: 97 (RA) Pulse Ox Interpretation: Normal Medical Decision Making Medical Decision Making: Time: 1953 Initial Impression: abdominal pain Differential Diagnosis includes but is not limited to: perforation, appendicitis , and colitis Initial Plan: --ABD Pelvis PO & IV Contrast CT --CMP --Drug screen --Lact Acid --Lipase --ED Urine dipstick --CBC w/ Differential --PTT --Prothrombin time [COAG] --Morphine 4mg --Omnipaque 50ml --Urine culture --IV Insertion --Urinalysis --Reevaluation Labs unremarkable. CT demonstrates ileus vs possible SBO Pt continues to have distension, pain resolved with morphine. Hospitalized for observation to determine if early partial SBO or resolution of ileus. CITLALLI Michael PMD CITLALLI residential support worker for consult with Dr John LENNON pt findings and plan of care. Scribe Attestation: Documented by Sushant Alexis, acting as a scribe for Chaya Flowers MD Provider Scribe Attestation: All medical record entries made by the Scribe were at my direction and personally dictated by me. I have reviewed the chart and agree that the record accurately reflects my personal performance of the history, physical exam, medical decision making, and the department course for this patient. I have also personally directed, reviewed, and agree with the discharge instructions and disposition. Disposition - Clinical Impression Clinical Impression: Abdominal pain Counseled Patient/Family Regarding: Studies Performed, Diagnosis - Disposition Disposition Time: 23:00 Condition: FAIR - Pt Status Changed To: Hospital Disposition Of: Observation - POA Present On Arrival: None
[2018-02-10 21:20] LABS: BARBITURATES, UR NEGATIVE (NEGATIVE); BENZODIAZEPINES, UR NEGATIVE (NEGATIVE); OPIATES, UR NEGATIVE (NEGATIVE); PHENCYCLIDINE, UR NEGATIVE (NEGATIVE)
[2018-02-10 21:24] LABS: PARTIAL THROMBOPLASTIN TIME 30.1 Seconds (25.6-37.1); PROTHROMBIN TIME 11.6 Seconds (9.8-13.1)
[2018-02-10] MEDS ORDERED: Iohexol 300 100 ML IJ ONE (22:13)
[2018-02-10] MEDS ORDERED: Sodium Chloride 0.9% 50 ML IV ONE (22:13)
[2018-02-10 23:05] LABS: URINE BILIRUBIN NEGATIVE (NEGATIVE); URINE BLOOD NEGATIVE (NEGATIVE); URINE CLARITY CLEAR (Clear); URINE COLOR YELLOW (YELLOW); URINE GLUCOSE (UA) NEG (Normal); URINE LEUKOCYTE ESTERASE NEG Leu/uL (Negative); URINE PROTEIN NEGATIVE (NEGATIVE); URINE UROBILINOGEN 0.2-1.0 mg/dL (0.2-1.0)
--- NOTE | 2018-02-10 23:54 | CT ---
EXAM: CT Abdomen and Pelvis With Intravenous Contrast EXAM DATE/TIME: 02/10/2018 8:11 PM CLINICAL HISTORY: 52 years old, male; Pain; Abdominal pain; Other: Rt side abd pain; Additional info: Right sided abdominal pain TECHNIQUE: Axial computed tomography images of the abdomen and pelvis with intravenous contrast. All CT scans at this facility use one or more dose reduction techniques, viz.: automated exposure control; ma/kV adjustment per patient size (including targeted exams where dose is matched to indication; i.e. head); or iterative reconstruction technique. Coronal and sagittal reformatted images were created and reviewed. CONTRAST: 95 mL of omnipaque administered intravenously. COMPARISON: Prior CT abdomen and pelvis of 2015-11-24 FINDINGS: LUNG BASES: No significant abnormality seen. ABDOMEN: LIVER: Fatty infiltration of the liver. The liver is enlarged. GALLBLADDER AND BILE DUCTS: No CT evidence of acute cholecystitis. No evidence of significant biliary ductal dilatation. PANCREAS: No CT evidence of acute pancreatitis. SPLEEN: No acute abnormality of the spleen identified. ADRENALS: No acute abnormality of the adrenal glands identified. KIDNEYS AND URETERS: Low density lesions in the kidneys bilaterally, most likely representing cysts. The largest of these, located in the right kidney lower pole, measures 2.5 cm. No acute abnormality of the kidneys identified. . STOMACH AND BOWEL: There are multiple top normal caliber to mildly dilated small bowel loops seen. These are scattered in nature. There appear to be top normal caliber to mildly dilated small bowel loops interposed with normal caliber small bowel loops. There is no definite single abrupt transition point seen in the small bowel. There is no evidence of diffuse small bowel dilatation. Findings are most likely due to a mild ileus of the small bowel, less likely a partial small bowel obstruction, such as secondary to adhesions. Colonic diverticulosis, with no evidence of acute diverticulitis. Otherwise, no significant abnormality of the bowel seen. PELVIS: APPENDIX: Appendix is seen, and is within normal limits in appearance. BLADDER: No acute abnormality of the bladder identified. REPRODUCTIVE: No acute abnormality of the reproductive organs is seen. ABDOMEN and PELVIS: INTRAPERITONEAL SPACE: No evidence of free intraperitoneal air or fluid. BONES/JOINTS: No acute fractures or other acute bony abnormality noted. SOFT TISSUES: No acute abnormality of the visualized soft tissues is seen. VASCULATURE: No evidence of abdominal aortic aneurysm. No evidence of periaortic hemorrhage. LYMPH NODES: No evidence of diffuse lymphadenopathy. IMPRESSION: - Small bowel findings which are most likely due to a mild ileus of the small bowel, less likely a partial SBO. - Otherwise, no evidence of significant acute process. - See above for remaining findings.
[2018-02-11] MEDS ORDERED: Famotidine 20mg/50ml Premix IVPB STA (00:08)
[2018-02-11] MEDS ORDERED: Dextrose 5%/0.9% NS 1,000 ML IV SCH (00:15)
--- NOTE | 2018-02-11 00:42 | CP.PCM.CON ---
History of Present Illness - History of Present Illness History of Present Illness: Surgery Consult Note. Dr. Lopez 52yo M with PMHx of HTN, HLD, Viral Cardiomyopathy here for evaluation of right sided abdominal pain. Patient states that the pain started at 10:30 yesterday morning, described as sharp, waxing and waning, located in the right mid abdomen , does not radiate. He states that he was at work when the pain started, left to go home and ate some food which made the pain slightly worse. He reported some nausea without any vomiting. He came into the ER for further evaluation. Last BM was today, normal caliber, non bloody, soft. Continues to have regular flatus. No urinary changes. No fevers or chills. Denies any sick contacts. No CP /SOB. Currently, patient reports that his abdominal pain has resolved, denies any nausea or vomiting. Of note, he did receive 4mg Morphine prior to patient encounter. PMD: Dr. Michael PMHx: HTN, HLD, Viral Cardiomyopathy PSHx: Defibrillator placement and multiple battery replacements Family Hx: Non-contributory Social Hx: Lives at home. Works as flower delivery. Denies Tobacco use, Denies ETOH use, Denies illicit drugs NKDA Review of Systems - Review of Systems All systems: reviewed and no additional remarkable complaints except - Constitutional Constitutional: absent: Chills, Fever - Cardiovascular Cardiovascular: absent: Chest Pain, Dyspnea - Respiratory Respiratory: absent: Cough, Dyspnea - Gastrointestinal Gastrointestinal: Abdominal Pain, Nausea. absent: Constipation, Diarrhea, Hematemesis, Hematochezia, Vomiting - Genitourinary Genitourinary: absent: Dysuria Past Patient History - Infectious Disease Hx of Infectious Diseases: None - Past Medical History & Family History Past Medical History?: Yes - Past Social History Smoking Status: Never Smoked Alcohol: None Drugs: Denies Home Situation {Lives}: With Family - CARDIAC Hx Atrial Fibrillation: No Hx Cardia Arrhythmia: Yes Hx Congestive Heart Failure: Yes Hx Hypercholesterolemia: Yes Hx Hypertension: Yes Hx Mitral Valve Prolapse: No Hx Pacemaker: Yes (AICD/PM) Hx Peripheral Edema: No - NEUROLOGICAL Hx Alzheimer's Disease: No - HEENT Hx HEENT Problems: No - RENAL Hx Chronic Kidney Disease: No - ENDOCRINE/METABOLIC Hx Endocrine Disorders: No - HEMATOLOGICAL/ONCOLOGICAL Hx Human Immunodeficiency Virus (HIV): No - INTEGUMENTARY Hx Dermatological Problems: No - MUSCULOSKELETAL/RHEUMATOLOGICAL Hx Musculoskeletal Disorders: No - GASTROINTESTINAL Hx Gastritis: Yes - GENITOURINARY/GYNECOLOGICAL Hx Genitourinary Disorders: No - PSYCHIATRIC Hx Psychophysiologic Disorder: No Hx Substance Use: No - SURGICAL HISTORY Hx Surgeries: Yes Hx Orthopedic Surgery: Yes - ANESTHESIA Hx Anesthesia: Yes Hx Anesthesia Reactions: No Hx Malignant Hyperthermia: No Meds Allergies/Adverse Reactions: Allergies Allergy/AdvReac Type Severity Reaction Status Date / Time No Known Allergies Allergy Verified 11/17/17 06:50 - Medications Medications: Current Medications Dextrose/Sodium Chloride (Dextrose 5%/0.9% Ns 1000 Ml) 1,000 mls @ 100 mls/hr IV .Q10H FLORENCIO Ondansetron HCl (Zofran Odt) 4 mg PO Q4 PRN PRN Reason: Nausea/Vomiting Physical Exam - Constitutional Appears: Well, Non-toxic, No Acute Distress - Head Exam Head Exam: ATRAUMATIC, NORMAL INSPECTION, NORMOCEPHALIC - Eye Exam Eye Exam: EOMI, Normal appearance - ENT Exam ENT Exam: Mucous Membranes Moist - Neck Exam Neck exam: Positive for: Normal Inspection - Respiratory Exam Respiratory Exam: NORMAL BREATHING PATTERN. absent: Accessory Muscle Use, Respiratory Distress - Cardiovascular Exam Cardiovascular Exam: absent: JVD - GI/Abdominal Exam Additional comments: Soft, non-tender to deep palpation. No Rodríguez's sign. No rebound, no guarding. No CVA tenderness bilaterally. (mildly distended, however, patient reports similar abdominal girth and distention for the past few years) - Extremities Exam Extremities exam: Positive for: normal inspection. Negative for: calf tenderness - Back Exam Back exam: NORMAL INSPECTION - Neurological Exam Neurological exam: Alert, Oriented x3 - Skin Skin Exam: Dry, Intact, Normal Color, Warm Results - Vital Signs Recent Vital Signs: Last Vital Signs Temp 98.3 F 02/10/18 19:16 Pulse 79 02/10/18 19:16 Resp 17 02/10/18 19:16 BP 137/81 02/10/18 19:16 Pulse Ox 97 02/10/18 21:10 - Labs Result Diagrams: 02/10/18 20:40 02/10/18 20:40 Labs: Laboratory Results - last 24 hr 02/10/18 02/10/18 02/10/18 20:40 20:40 20:40 WBC 9.2 RBC 4.63 Hgb 13.2 Hct 40.3 MCV 87.2 MCH 28.6 MCHC 32.8 L RDW 13.4 Plt Count 206 MPV 8.8 Neut % (Auto) 54.7 Lymph % (Auto) 31.3 Tripp % (Auto) 9.8 Eos % (Auto) 3.8 Baso % (Auto) 0.4 Neut # (Auto) 5.0 Lymph # (Auto) 2.9 Tripp # (Auto) 0.9 H Eos # (Auto) 0.4 Baso # (Auto) 0.0 PT INR APTT Sodium 142 Potassium 4.2 Chloride 102 Carbon Dioxide 28 Anion Gap 16 BUN 19 Creatinine 0.8 Est GFR ( Amer) > 60 Est GFR (Non-Af Amer) > 60 Random Glucose 95 Lactic Acid 1.4 Calcium 9.6 Total Bilirubin 0.4 AST 34 ALT 35 Alkaline Phosphatase 87 Total Protein 8.3 H Albumin 4.2 Globulin 4.1 H Albumin/Globulin Ratio 1.0 Lipase 78 Urine Color Urine Clarity Urine pH Ur Specific Benton Urine Protein Urine Glucose (UA) Urine Ketones Urine Blood Urine Nitrate Urine Bilirubin Urine Urobilinogen Ur Leukocyte Esterase Urine RBC (Auto) Urine Microscopic WBC Urine Opiates Screen Urine Methadone Screen Ur Barbiturates Screen Ur Phencyclidine Scrn Ur Amphetamines Screen U Benzodiazepines Scrn U Oth Cocaine Metabols U Cannabinoids Screen 02/10/18 02/10/18 02/10/18 20:40 20:40 20:40 WBC RBC Hgb Hct MCV MCH MCHC RDW Plt Count MPV Neut % (Auto) Lymph % (Auto) Tripp % (Auto) Eos % (Auto) Baso % (Auto) Neut # (Auto) Lymph # (Auto) Tripp # (Auto) Eos # (Auto) Baso # (Auto) PT 11.6 INR 1.0 APTT 30.1 Sodium Potassium Chloride Carbon Dioxide Anion Gap BUN Creatinine Est GFR ( Amer) Est GFR (Non-Af Amer) Random Glucose Lactic Acid Calcium Total Bilirubin AST ALT Alkaline Phosphatase Total Protein Albumin Globulin Albumin/Globulin Ratio Lipase Urine Color Yellow Urine Clarity Clear Urine pH 5.0 Ur Specific Benton 1.026 Urine Protein Negative Urine Glucose (UA) Neg Urine Ketones Negative Urine Blood Negative Urine Nitrate Negative Urine Bilirubin Negative Urine Urobilinogen 0.2-1.0 Ur Leukocyte Esterase Neg Urine RBC (Auto) 3 Urine Microscopic WBC 1 Urine Opiates Screen Negative Urine Methadone Screen Negative Ur Barbiturates Screen Negative Ur Phencyclidine Scrn Negative Ur Amphetamines Screen Negative U Benzodiazepines Scrn Negative U Oth Cocaine Metabols Negative U Cannabinoids Screen Negative Assessment & Plan - Assessment and Plan (Free Text) Assessment: 52yo M with abdominal pain. - CT Abd/Pelvis noted. Low suspicion for SBO. Likely mild, resolving ileus. Plan: - NPO for now - May advance diet slowly as tolerated in the AM if clinically same - IVF - monitor bowel function - Pain management - Antiemetics - No surgical intervention warranted at this time Further recs as per Dr. John Petersen PGY1 surgery pager: [phone]
[2018-02-11] MEDS ORDERED: Famotidine 20mg/50ml 20 MG/50 ML BAG IVPB ONE ×2 (01:37→01:39)
[2018-02-11 02:37] VITALS: BP 141/81; RESP 20; TEMP 97.6
[2018-02-11 08:37] VITALS: PULSE 63
[2018-02-11 09:41] LABS: BASO % 0.3 % (0.0-2.0); EOS # 0.3 K/uL (0.0-0.7); EOS % 3.4 % (0.0-4.0); HEMOGLOBIN 12.7 g/dL (12.0-18.0); LYMPH # 1.9 K/uL (1.0-4.3); LYMPH % 24.7 % (20.0-40.0); MEAN CELL VOLUME 87.3 fl (80.0-94.0); MEAN CORPUSCULAR HEMOGLOBIN 29.2 pg (27.0-31.0); MEAN CORPUSCULAR HGB CONC 33.4 g/dL (33.0-37.0); MEAN PLATELET VOLUME 8.7 fl (7.2-11.7); MONO # 0.5 K/uL (0.0-0.8); MONO % 6.7 % (0.0-10.0); NEUT # 4.9 K/uL (1.8-7.0); NEUT % 64.9 % (50.0-75.0); NRBC % 0.1 % (0.0-0.0); RBC 4.34 Mil/uL (4.40-5.90); RED CELL DISTRIBUTION WIDTH 13.2 % (11.5-14.5); WHITE BLOOD COUNT 7.6 K/uL (4.8-10.8)
[2018-02-11 09:59] LABS: ALBUMIN 3.9 g/dL (3.5-5.0); ALT/SGPT 38 U/L (21-72); AST/SGOT 39 U/L (17-59); BLOOD UREA NITROGEN 15 mg/dl (9-20); GFR AFRICAN-AMERICAN > 60; GFR NON-AFRICAN AMERICAN > 60
--- NOTE | 2018-02-11 10:18 | CP.PCM.DIS ---
Provider - Provider Date of Admission: 02/11/18 00:01 Attending physician: Aleks Olsen MD Time Spent in preparation of Discharge (in minutes): 30 Diagnosis - Discharge Diagnosis (1) Small bowel obstruction Status: Acute (2) Cardiomyopathy Status: Acute (3) Abdominal pain Status: Acute Hospital Course - Lab Results Lab Results: Most Recent Lab Values WBC 7.6 K/uL (4.8-10.8) 02/11/18 08:40 RBC 4.34 Mil/uL (4.40-5.90) L 02/11/18 08:40 Hgb 12.7 g/dL (12.0-18.0) 02/11/18 08:40 Hct 37.9 % (35.0-51.0) 02/11/18 08:40 MCV 87.3 fl (80.0-94.0) 02/11/18 08:40 MCH 29.2 pg (27.0-31.0) 02/11/18 08:40 MCHC 33.4 g/dL (33.0-37.0) 02/11/18 08:40 RDW 13.2 % (11.5-14.5) 02/11/18 08:40 Plt Count 185 K/uL (130-400) 02/11/18 08:40 MPV 8.7 fl (7.2-11.7) 02/11/18 08:40 Neut % (Auto) 64.9 % (50.0-75.0) 02/11/18 08:40 Lymph % (Auto) 24.7 % (20.0-40.0) 02/11/18 08:40 [place] % (Auto) 6.7 % (0.0-10.0) 02/11/18 08:40 Eos % (Auto) 3.4 % (0.0-4.0) 02/11/18 08:40 Baso % (Auto) 0.3 % (0.0-2.0) 02/11/18 08:40 Neut # (Auto) 4.9 K/uL (1.8-7.0) 02/11/18 08:40 Lymph # (Auto) 1.9 K/uL (1.0-4.3) 02/11/18 08:40 [place] # (Auto) 0.5 K/uL (0.0-0.8) 02/11/18 08:40 Eos # (Auto) 0.3 K/uL (0.0-0.7) 02/11/18 08:40 Baso # (Auto) 0.0 K/uL (0.0-0.2) 02/11/18 08:40 PT 11.6 Seconds (9.8-13.1) 02/10/18 20:40 INR 1.0 (0.9-1.2) 02/10/18 20:40 APTT 30.1 Seconds (25.6-37.1) 02/10/18 20:40 Sodium 139 mmol/l (132-148) 02/11/18 08:40 Potassium 4.8 MMOL/L (3.6-5.0) 02/11/18 08:40 Chloride 100 mmol/L (98-107) 02/11/18 08:40 Carbon Dioxide 29 mmol/L (22-30) 02/11/18 08:40 Anion Gap 15 (10-20) 02/11/18 08:40 BUN 15 mg/dl (9-20) 02/11/18 08:40 Creatinine 0.8 mg/dl (0.8-1.5) 02/11/18 08:40 Est GFR ( Amer) > 60 02/11/18 08:40 Est GFR (Non-Af Amer) > 60 02/11/18 08:40 Random Glucose 157 mg/dL (75-110) H 02/11/18 08:40 Lactic Acid 1.4 MMOL/L (0.7-2.1) 02/10/18 20:40 Calcium 9.0 mg/dL (8.4-10.2) 02/11/18 08:40 Total Bilirubin 0.6 mg/dl (0.2-1.3) 02/11/18 08:40 AST 39 U/L (17-59) 02/11/18 08:40 ALT 38 U/L (21-72) 02/11/18 08:40 Alkaline Phosphatase 70 U/L (38-126) 02/11/18 08:40 Total Protein 7.7 G/DL (6.3-8.2) 02/11/18 08:40 Albumin 3.9 g/dL (3.5-5.0) 02/11/18 08:40 Globulin 3.8 gm/dL (2.2-3.9) 02/11/18 08:40 Albumin/Globulin Ratio 1.0 (1.0-2.1) 02/11/18 08:40 Lipase 78 U/L (23-300) 02/10/18 20:40 Urine Color Yellow (YELLOW) 02/10/18 20:40 Urine Clarity Clear (Clear) 02/10/18 20:40 Urine pH 5.0 (5.0-8.0) 02/10/18 20:40 Ur Specific [place] 1.026 (1.003-1.030) 02/10/18 20:40 Urine Protein Negative mg/dL (NEGATIVE) 02/10/18 20:40 Urine Glucose (UA) Neg mg/dL (Normal) 02/10/18 20:40 Urine Ketones Negative mg/dL (NEGATIVE) 02/10/18 20:40 Urine Blood Negative (NEGATIVE) 02/10/18 20:40 Urine Nitrate Negative (NEGATIVE) 02/10/18 20:40 Urine Bilirubin Negative (NEGATIVE) 02/10/18 20:40 Urine Urobilinogen 0.2-1.0 mg/dL (0.2-1.0) 02/10/18 20:40 Ur Leukocyte Esterase Neg N[place]/uL (Negative) 02/10/18 20:40 Urine RBC (Auto) 3 /hpf (0-3) 02/10/18 20:40 Urine Microscopic WBC 1 /hpf (0-5) 02/10/18 20:40 Urine Opiates Screen Negative (NEGATIVE) 02/10/18 20:40 Urine Methadone Screen Negative (NEGATIVE) 02/10/18 20:40 Ur Barbiturates Screen Negative (NEGATIVE) 02/10/18 20:40 Ur Phencyclidine Scrn Negative (NEGATIVE) 02/10/18 20:40 Ur Amphetamines Screen Negative (NEGATIVE) 02/10/18 20:40 U Benzodiazepines Scrn Negative (NEGATIVE) 02/10/18 20:40 U Oth Cocaine Metabols Negative (NEGATIVE) 02/10/18 20:40 U Cannabinoids Screen Negative (NEGATIVE) 02/10/18 20:40 - Hospital Course Hospital Course: abdominal pain resolved pt moved his bowels Discharge Exam - Head Exam Head Exam: ATRAUMATIC, NORMAL INSPECTION, NORMOCEPHALIC - Eye Exam Eye Exam: EOMI, Normal appearance, PERRL Pupil Exam: NORMAL ACCOMODATION, PERRL - GI/Abdominal Exam GI & Abdominal Exam: Normal Bowel Sounds - Rectal Exam Rectal Exam: NORMAL INSPECTION - Neurological Exam Neurological exam: Alert, CN II-XII Intact, Normal Gait, Oriented x3, Reflexes Normal - Psychiatric Exam Psychiatric exam: Normal Affect, Normal Mood - Skin Skin Exam: Dry, Intact, Normal Color, Warm Discharge Plan - Follow Up Plan Condition: STABLE Disposition: HOME/ ROUTINE Patient education suggested?: Yes Additional Instructions: discharge home follow up with dr olsen
--- NOTE | 2018-02-11 12:22 | HP ---
ADMITTING HISTORY AND PHYSICAL HISTORY OF PRESENT ILLNESS: Mr. Dorantes is a 52-year-old male who was admitted via the Emergency Room because of abdominal pain which started on the day of admission. He was found to have intestinal obstruction on abdominal scan and advised admission for workup and therapy. He indicates that abdominal pain has resolved since admission, and he had moving bowels. PAST MEDICAL HISTORY: He has a past medical history of cardiomyopathy. FAMILY HISTORY: Noncontributory. SOCIAL HISTORY: He does not drink or smoke. REVIEW OF SYSTEMS: Essentially unremarkable.. PHYSICAL EXAMINATION: GENERAL: The patient is alert, oriented and appears to be comfortable at present. VITAL SIGNS: Blood pressure of 137/81, pulse of 79, and respiratory rate of 18. He is afebrile. O2 saturation is 97% on room air. SKIN: Shows fair turgor. HEENT: Pupils are equal and reactive to light and accommodation. Mouth shows fair hygiene. LUNGS: Clear. HEART: Regular. No murmurs or gallops. ABDOMEN: Soft and nontender. No organomegaly, but has slightly distended with gaseous distention, but normoactive bowel sounds. EXTREMITIES: Show no edema or cyanosis. CENTRAL NERVOUS SYSTEM: Exam is grossly intact. LABORATORY DATA: Remarkable for WBC of 9.2, hemoglobin of 13.2, and platelet count of 206,000. Sodium of 142, potassium of 4.2, BUN of 19, creatinine of 0.8, and serum glucose of 95. DIAGNOSTIC DATA: CT scan of abdomen and pelvis is remarkable for small bowel ileus likely secondary to partial small bowel obstruction, otherwise unremarkable. IMPRESSION: Acute partial small bowel obstruction, since resolved without therapy, the patient appears clinically comfortable at present. History of cardiomyopathy. PLAN: The plan is to discharge the patient today, advised to use stool softeners p.r.n. He will followup with Dr. Michael as an outpatient. Aleks Michael MD
[2018-02-11] MEDS ORDERED: [UNRECOGNIZED DRUG - OTHER] PO SCH (21:00)
[2018-02-12] MEDS ORDERED: Pantoprazole 40 mg EC Tab PO SCH (09:00)
[2018-02-12] MEDS ORDERED: Metoprolol Succinate 100 mg XL Tab PO SCH (09:00)
[2018-02-12 14:52] VITALS: O2SAT 97
== END 2018-02-11 13:32 | disposition home or self-care (01) ==
LOC: H.ER 18:48 → H.ERHOLD 02-11 00:01 → H.MEDSURG1 02-11 02:19
PROVIDERS: ADMIT Internal Medicine Pulmonary Disease; ATTEND Internal Medicine Pulmonary Disease
DX: K56.600 Partial intestinal obstruction, unspecified as to cause (principal); K56.7 Ileus, unspecified; Z95.0 Presence of cardiac pacemaker; K29.70 Gastritis, unspecified, without bleeding; Z79.899 Other long term (current) drug therapy; M54.9 Dorsalgia, unspecified; E78.00 Pure hypercholesterolemia, unspecified; E78.5 Hyperlipidemia, unspecified; I11.0 Hypertensive heart disease with heart failure; I42.9 Cardiomyopathy, unspecified; I50.9 Heart failure, unspecified
CPT/HCPCS: 36415; 74177; 80053; 80324; 80345; 80346; 80349; 80353; 80358; 80361; 81003; 83605; 83690; 83992; 85025; 85610; 85730; 87086; 96361; 96365; 96375; 96376; 99284; G0378; J2270; J7042; Q9966; Q9967

== ENCOUNTER 2018-09-04 12:44 | Emergency (ER) | payer MEDICAID, OTHER ==
[2018-09-04 12:45] VITALS: BMI 38.5
[2018-09-04 13:03] VITALS: RESP 18; TEMP 98.2; O2SAT 98
[2018-09-04] MEDS ORDERED: Amoxicillin-Clav 875-125 mg Tab PO STA (13:23)
--- NOTE | 2018-09-04 13:25 | ED PDOC ---
HPI: CCC, URI, Sore Throat Time Seen by Provider: 09/04/18 13:22 Chief Complaint (Nursing): ENT Problem Chief Complaint (Provider): Pharyngitis History Per: Patient History/Exam Limitations: no limitations Have you had recent travel within the past 21 days to any of the following countries: [place], [place], [place] or [place]?: No Onset/Duration Of Symptoms: Days (one) Current Symptoms Are (Timing): Still Present Location Of Pain: Throat Sick Contacts (Context): None Associated Symptoms: Sore Throat, Neck Pain Past Medical History Reviewed: Historical Data, Nursing Documentation, Vital Signs Vital Signs: Last Vital Signs Temp 98.2 F 09/04/18 13:00 Pulse 96 H 09/04/18 13:00 Resp 18 09/04/18 13:00 BP 170/96 H 09/04/18 13:00 Pulse Ox 98 09/04/18 13:00 - Medical History PMH: Bronchitis, Cardia Arrhythmia, CHF, Gastritis, HTN, Hypercholesterolemia Denies: Atrial Fibrillation, Diabetes, Chronic Kidney Disease - Surgical History Surgical History: Back Surgery (1984), Endoscopy, Pacemaker (AICD/PM) - Family History Family History: States: Unknown Family Hx, Hypertension - Immunization History Hx Tetanus Toxoid Vaccination: Yes Hx Influenza Vaccination: No (2016) Hx Pneumococcal Vaccination: Yes - Home Medications Home Medications: Ambulatory Orders Medication Instructions Recorded Atorvastatin [Lipitor] 40 mg PO DAILY 03/30/16 Metoprolol Succinate XL [Toprol XL] 100 mg PO DAILY 03/30/16 Propafenone HCl [Rythmol] 225 mg PO Q12 03/30/16 traMADol [Ultram] 50 mg PO Q8 #14 tab 05/29/18 Amoxicillin/Clavulanate [Augmentin 1 tab PO BID #20 tab 09/04/18 875 MG-125 MG] Lidocaine 2% Viscous 5 ml MM TID #100 ml 09/04/18 - Allergies Allergies/Adverse Reactions: Allergies Allergy/AdvReac Type Severity Reaction Status Date / Time No Known Allergies Allergy Verified 09/04/18 13:00 Review of Systems ROS Statement: Except As Marked, All Systems Reviewed And Found Negative Constitutional: Negative for: Fever, Chills, Sweats ENT: Positive for: Throat Pain, Throat Swelling Physical Exam - Reviewed Nursing Documentation Reviewed: Yes Vital Signs Reviewed: Yes - Physical Exam Appears: Positive for: Well, Non-toxic, No Acute Distress Head Exam: Positive for: ATRAUMATIC, NORMAL INSPECTION Skin: Positive for: Normal Color, Warm, Dry. Negative for: Diaphoresis, Pallor, Rash Eye Exam: Positive for: Normal appearance, EOMI, PERRL. Negative for: Ny stagmus, Periorbital swelling, Periorbital tenderness ENT: Positive for: Pharynx Is (edematous left tonsil at +2; erythemic bilaterally withotu tonsillar exudate). Negative for: Nasal Congestion, Tonsillar Exudate Neck: Positive for: Normal, Painless ROM, Supple. Negative for: Decreased ROM (the patient is swallowing all of his secretions and there is no obstruction of airway) Respiratory: Positive for: Normal Breath Sounds. Negative for: Decreased Breath Sounds, Accessory Muscle Use, Crackles, Rales, Stridor, Wheezing, Respiratory Distress Pulses-Carotid (L): 2+ Pulses-Carotid (R): 2+ Pulses-Post. Tibialis (L): 2+ Pulses-Post. Tibialis (R): 2+ - ECG O2 Sat by Pulse Oximetry: 98 Medical Decision Making Medical Decision Making: strep negative pt tx in ED with 10mg of decadron PO with excellent relief at anti-inflammation as well as 10ml of viscous lidocaine Pt ordered to follow up with PMD in 24-48 hours and will be given viscous lidocaine as well as augmentin 875/125 Disposition - Clinical Impression Clinical Impression: Tonsillitis, Throat pain - Patient ED Disposition Is Patient to be Admitted: No Doctor Will See Patient In The: Office Counseled Patient/Family Regarding: Studies Performed, Diagnosis, Need For Followup, Rx Given - Disposition Referrals: Aleks Michael MD [Family Provider] - Disposition: Routine/Home Disposition Time: 15:06 Condition: STABLE Additional Instructions: follow up with Dr Michael in 24-48 hours Prescriptions: Amoxicillin/Clavulanate [Augmentin 875 MG-125 MG] 1 tab PO BID #20 tab Lidocaine 2% Viscous 5 ml MM TID #100 ml Instructions: Sore Throat in Adults, Sore Throat, Adult (DC) Forms: [employer] (Burmese), [facility] ED School/Work Excuse
[2018-09-04 15:47] VITALS: BP 152/92; PULSE 80
== END 2018-09-04 15:47 | disposition home or self-care (01) ==
LOC: H.ER 12:44
DX: J03.90 Acute tonsillitis, unspecified (principal)
CPT/HCPCS: 87070; 87430; 99282; J1100

== ENCOUNTER 2018-10-06 10:08 | Emergency (ER) | payer MEDICAID, OTHER ==
[2018-10-06 10:08] VITALS: BMI 38.5
[2018-10-06 10:30] VITALS: RESP 16
[2018-10-06] MEDS ORDERED: Naproxen 500 MG TAB PO ONE (10:40)
[2018-10-06] MEDS ORDERED: Sodium Chloride 0.9% 1,000 ML IV STA (10:56)
--- NOTE | 2018-10-06 10:59 | ED PDOC ---
HPI: Influenza Time Seen by Provider: 10/06/18 10:20 Chief Complaint: Flu-like Symptoms History Per: Patient Risk factors for flu complications: Yes: heart disease Additional complaint(s):: Pt. states for the past 3 days he's had a persistent dry cough, runny nose, and tactile fever with chills. Also reports having atraumatic b/l upper back pain present only with coughing. Of note, pt. has not used any meds to help relieve symptoms including antipyretic meds. Denies chest pain, SOB, hemoptysis, hx of DVT or PE, leg pain or swelling, hormonal therapy, rash, recent travel. Of note, pt.'s son is in ED with same symptoms. Past Medical History Reviewed: Historical Data, Nursing Documentation, Vital Signs Vital Signs: Last Vital Signs Temp 98.3 F 10/06/18 10:27 Pulse 114 H 10/06/18 10:27 Resp 16 10/06/18 10:27 BP 131/70 10/06/18 10:27 Pulse Ox 95 10/06/18 10:27 - Medical History PMH: Bronchitis, Cardia Arrhythmia, CHF, Gastritis, HTN, Hypercholesterolemia Denies: Atrial Fibrillation, Diabetes, Chronic Kidney Disease - Surgical History Surgical History: Back Surgery (1984), Endoscopy, Pacemaker (AICD/PM) - Family History Family History: States: Hypertension - Immunization History Hx Tetanus Toxoid Vaccination: Yes Hx Influenza Vaccination: No (2016) Hx Pneumococcal Vaccination: Yes - Home Medications Home Medications: Ambulatory Orders Medication Instructions Recorded Atorvastatin [Lipitor] 40 mg PO DAILY 03/30/16 Metoprolol Succinate XL [Toprol XL] 100 mg PO DAILY 03/30/16 Propafenone HCl [Rythmol] 225 mg PO Q12 03/30/16 traMADol [Ultram] 50 mg PO Q8 #14 tab 05/29/18 Amoxicillin/Clavulanate [Augmentin 1 tab PO BID #20 tab 09/04/18 875 MG-125 MG] Lidocaine 2% Viscous 5 ml MM TID #100 ml 09/04/18 Benzonatate [Tessalon Perle] 200 mg PO Q8 PRN #14 capsule 10/06/18 Oseltamivir Cap [Tamiflu] 75 mg PO BID #9 cap 10/06/18 - Allergies Allergies/Adverse Reactions: Allergies Allergy/AdvReac Type Severity Reaction Status Date / Time No Known Allergies Allergy Verified 09/04/18 13:00 Review of Systems ROS Statement: Except As Marked, All Systems Reviewed And Found Negative Physical Exam - Physical Exam Appears: Positive for: Well, Non-toxic, No Acute Distress Skin: Positive for: Normal Color, Warm. Negative for: Rash Eye Exam: Positive for: Normal appearance ENT: Positive for: Normal ENT Inspection Neck: Positive for: Normal, Painless ROM Cardiovascular/Chest: Positive for: Tachycardia. Negative for: Murmur Respiratory: Positive for: Normal Breath Sounds. Negative for: Wheezing, Respiratory Distress Gastrointestinal/Abdominal: Positive for: Soft. Negative for: Tenderness Back: Negative for: L CVA Tenderness, R CVA Tenderness Extremity: Positive for: Normal ROM. Negative for: Calf Tenderness (b/l) Neurologic/Psych: Positive for: Alert, Oriented (x3) - Laboratory Results Result Diagrams: 10/06/18 11:10 10/06/18 11:10 - ECG ECG: Positive for: Interpreted By Me ECG Rhythm: Positive for: Atrioventricular Paced Rate: 100 O2 Sat by Pulse Oximetry: 95 - Radiology X-Ray: Interpreted by Me (CXR) X-Ray Interpretation: No Acute Disease - Progress ED Course And Treament: Labs, EKG, CXR ordered. Tamiflu PO ordered. 1243 D-Dimer elevated. CTA chest r/o PE ordered. Pt. informed of all diagnostic results and plan for CTA. Agrees with plan and care. States he is feeling better but cough still present. Promethazine/codeine PO ordered. 1428 CTA Chest: Limited study for pulmonary pulmonary embolism as detailed above however no large filling defects seen to suggest acute central pulmonary embolus. Scarring changes in the right middle lobe and to a lesser degree both lung bases. Few small to medium-sized nonspecific mediastinal lymph nodes. On re-evaluation, pt. alert, awake. Reports feeling further improved. Cough has decreased. Repeat VS improved. No longer tachycardic. Denies chest pain, SOB. Informed of CT results. Agrees with plan and care. Advised to f/u with PMD for further evaluation but is to return to ED immediately if symptoms worsen. Disposition - Clinical Impression Clinical Impression: Influenza-like illness - Patient ED Disposition Is Patient to be Admitted: No - Disposition Referrals: [facility] [Outside] [facility] [Outside] Disposition: Routine/Home Disposition Time: 14:31 Condition: STABLE Additional Instructions: FOLLOW UP WITH YOUR DOCTOR FOR FURTHER EVALUATION RETURN TO ED IMMEDIATELY IF SYMPTOMS WORSEN GINA CLARKE, thank you for letting us take care of you today. Your provider was Ophelia Haider MD and you were treated for POSS FLU LIKE SYMPTOMS. The emergency medical care you received today was directed at your acute symptoms. If you were prescribed any medication, please fill it and take as directed. It may take several days for your symptoms to resolve. Return to the Emergency Department if your symptoms worsen, do not improve, or if you have any other problems. Please contact your doctor or call one of the physicians/clinics you have been referred to that are listed on the Patient Visit Information form that is included in your discharge packet. Bring any paperwork you were given at dis charge with you along with any medications you are taking to your follow up visit. Our treatment cannot replace ongoing medical care by a primary care provider outside of the emergency department. Thank you for allowing the [facility] team to be part of your care today. If you had an X-Ray or CT scan: A Radiologist will review the ED reading if any change in treatment is needed we will contact you. If you had a blood, urine, or wound culture: It will take several days for the results, if any change in treatment is needed we will contact you. If you had an STI test: It will take 48 hours for the results. Please call after 1 week if you have not heard back. Prescriptions: Benzonatate [Tessalon Perle] 200 mg PO Q8 PRN #14 capsule PRN Reason: Cough Oseltamivir Cap [Tamiflu] 75 mg PO BID #9 cap Instructions: Flu, Adult (DC) Forms: [place] ([place]izen [place]), [facility] ED School/Work Excuse
[2018-10-06 11:15] LABS: BASO % 0.4 % (0.0-2.0); EOS # 0.2 K/uL (0.0-0.7); EOS % 2.4 % (0.0-4.0); HEMOGLOBIN 13.8 g/dL (12.0-18.0); LYMPH # 0.9 K/uL (1.0-4.3); MEAN CELL VOLUME 87.1 fl (80.0-94.0); MEAN CORPUSCULAR HEMOGLOBIN 29.3 pg (27.0-31.0); MEAN CORPUSCULAR HGB CONC 33.6 g/dL (33.0-37.0); MEAN PLATELET VOLUME 8.8 fl (7.2-11.7); MONO # 1.2 K/uL (0.0-0.8); MONO % 14.3 % (0.0-10.0); NEUT # 5.8 K/uL (1.8-7.0); NEUT % 71.9 % (50.0-75.0); NRBC % 0.1 % (0.0-0.0); RBC 4.73 Mil/uL (4.40-5.90); RED CELL DISTRIBUTION WIDTH 12.9 % (11.5-14.5); WHITE BLOOD COUNT 8.1 K/uL (4.8-10.8)
[2018-10-06 11:26] LABS: VENOUS BLOOD GAS BASE EXCESS 4.8 mmol/L (0.0-2.0); VENOUS BLOOD GAS PCO2 48 mmHg (40-60); VENOUS BLOOD GAS PO2 46 mm/Hg (30-55); VENOUS BLOOD PH 7.41 (7.32-7.43)
[2018-10-06 11:39] LABS: BLOOD UREA NITROGEN 34 mg/dl (9-20); GFR NON-AFRICAN AMERICAN > 60
[2018-10-06 11:40] LABS: ALB/GLOB RATIO 1.1 (1.0-2.1); ALBUMIN 4.7 g/dL (3.5-5.0); ALT/SGPT 47 U/L (21-72); AST/SGOT 60 U/L (17-59); CALCIUM 9.7 mg/dL (8.4-10.2)
[2018-10-06 12:07] LABS: URINE CLARITY CLOU (Clear); URINE COLOR YELLOW (YELLOW)
[2018-10-06 12:08] LABS: URINE BILIRUBIN NEGATIVE (NEGATIVE); URINE BLOOD NEGATIVE (NEGATIVE); URINE GLUCOSE (UA) NEGATIVE (NEGATIVE); URINE LEUKOCYTE ESTERASE NEGATIVE Leu/uL (Negative); URINE PROTEIN 30 mg/dL (NEGATIVE); URINE UROBILINOGEN 0.2-1.0 mg/dL (0.2-1.0)
[2018-10-06 12:09] LABS: SQUAMOUS EPITHIAL < 1 /hpf (0-5); URINE OTHER CASTS 5 /hpf
[2018-10-06] MEDS ORDERED: Iodixanol 320 MG/ML 100 ML BOTTLE IV ONE (13:11)
[2018-10-06] MEDS ORDERED: Sodium Chloride 0.9% 50 ML IV ONE (13:11)
[2018-10-06] MEDS ORDERED: Promethazine/Cod 6.25mg-10mg/5ml Syr UD PO ONE (13:15)
[2018-10-06] MEDS ORDERED: Promethazine 6.25 MG/5 ML CUP ONE (14:03)
[2018-10-06] MEDS ORDERED: Promethazine/Cod 6.25mg-10mg/5ml Syr UD ONE (14:05)
--- NOTE | 2018-10-06 14:26 | CT ---
Date of service: 10/06/2018 PROCEDURE: CT Chest with contrast (Pulmonary Angiogram) HISTORY: Back pain, cough; tachycardic; high d-dimer COMPARISON: None available. TECHNIQUE: Axial computed tomography images were obtained of the chest in the pulmonary arterial phase of enhancement. Coronal and sagittal reformatted images were created and reviewed. Intravenous contrast dose: 99 cc Visipaque 320 contrast material. Radiation dose: Total exam DLP = 391.08 mGy-cm. This CT exam was performed using one or more of the following dose reduction techniques: Automated exposure control, adjustment of the mA and/or kV according to patient size, and/or use of iterative reconstruction technique. FINDINGS: There is suboptimal opacification of the pulmonary arteries limiting evaluation for pulmonary embolus. PULMONARY ARTERIES: Unremarkable. No pulmonary embolism. AORTA: Heart size is within range of normal. No significant pericardial effusion. No thoracic aortic aneurysm. No aortic atherosclerotic calcification or mural plaque present. LUNGS: Chronic atelectatic/scarring changes right middle lobe and to a lesser degree right lung base. Minimal scarring seen left lingular region. PLEURAL SPACES: Unremarkable. No effusion or pneumothorax. HEART: Unremarkable. No cardiomegaly. No significant pericardial effusion. LYMPH NODES: There are multiple small to medium-sized mediastinal lymph nodes, the largest left pretracheal/precarinal lymph node measuring approximately 15 mm. Few small prevascular and AP window lymph nodes are present as well. No significant small approximately 10.6 mm left hilar lymph node is present. Tiny approximately 6 mm right hilar lymph node also noted. There is a small hiatal hernia. The BONES, CHEST WALL: Mild multilevel degenerative spondylosis of the thoracic spine. OTHER FINDINGS: Unremarkable. IMPRESSION: Limited study for pulmonary pulmonary embolism as detailed above however no large filling defects seen to suggest acute central pulmonary embolus. Scarring changes in the right middle lobe and to a lesser degree both lung bases. Few small to medium-sized nonspecific mediastinal lymph nodes.
[2018-10-06 14:28] VITALS: BP 134/72; TEMP 97.7
[2018-10-06 14:30] VITALS: PULSE 100; O2SAT 95
--- NOTE | 2018-10-06 15:54 | RAD ---
Date of service: 10/06/2018 HISTORY: Cough COMPARISON: Comparison chest dated 11/17/2017 TECHNIQUE: Chest PA and lateral FINDINGS: LUNGS: Minor bibasilar atelectasis left greater than right.. PLEURA: No significant pleural effusion identified. No pneumothorax apparent. CARDIOVASCULAR: No aortic atherosclerotic calcification present. Cardiac silhouette stable. No change triple lead pacemaker -defibrillator OSSEOUS STRUCTURES: No significant abnormalities. VISUALIZED UPPER ABDOMEN: Normal. OTHER FINDINGS: None. IMPRESSION: Minor bibasilar atelectasis left greater than right..
--- NOTE | 2018-10-06 19:20 | CARD ---
APPROVED REPORT Date of service: 10/06/2018 EKG Measurement Heart [id number] <Conclusion> Atrial-sensed ventricular-paced rhythm Abnormal ECG
== END 2018-10-06 15:15 | disposition home or self-care (01) ==
LOC: H.ER 10:08
DX: J11.1 Influenza due to unidentified influenza virus with other respiratory manifestations (principal); E78.00 Pure hypercholesterolemia, unspecified; I11.0 Hypertensive heart disease with heart failure; Z95.0 Presence of cardiac pacemaker
CPT/HCPCS: 71046; 71275; 80053; 81003; 82803; 84484; 85025; 85378; 87040; 87070; 87430; 87804; 93005; 99282; J7030; Q9967

== ENCOUNTER 2019-01-13 10:05 | Emergency (ER) | payer MEDICAID, OTHER ==
[2019-01-13 10:25] VITALS: O2SAT 95; BMI 39.2
--- NOTE | 2019-01-13 10:29 | ED PDOC ---
HPI: Headache Time Seen by Provider: 01/13/19 10:15 Chief Complaint (Nursing): Headache History Per: Patient Onset/Duration Of Symptoms: Days (2) Current Symptoms Are (Timing): Intermittent Episodes Severity: Moderate Quality: Sharp Preceeding Symptoms: None Associated Symptoms: denies: Blurred Vision, Nausea Additional Complaint(s): Sharp left sided posterior headaches x 2 days. denies trauma or fever. Denies focal weakness or parasthesias. Past Medical History Vital Signs: Last Vital Signs Temp 98.6 F 01/13/19 10:08 Pulse 82 01/13/19 10:08 Resp 18 01/13/19 10:08 BP 145/66 01/13/19 10:08 Pulse Ox 95 01/13/19 10:08 Primary Care Provider: Aleks Michael I - Medical History PMH: Bronchitis, Cardia Arrhythmia, CHF, Gastritis, HTN, Hypercholesterolemia Denies: Atrial Fibrillation, Diabetes, Chronic Kidney Disease - Surgical History Surgical History: Back Surgery (1984), Endoscopy, Pacemaker (AICD/PM) - Family History Family History: States: Unknown Family Hx, Hypertension - Immunization History Hx Tetanus Toxoid Vaccination: Yes Hx Influenza Vaccination: No (2016) Hx Pneumococcal Vaccination: Yes - Home Medications Home Medications: Ambulatory Orders Medication Instructions Recorded Atorvastatin [Lipitor] 40 mg PO DAILY 03/30/16 Metoprolol Succinate XL [Toprol XL] 100 mg PO DAILY 03/30/16 Propafenone HCl [Rythmol] 225 mg PO Q12 03/30/16 traMADol [Ultram] 50 mg PO Q8 #14 tab 05/29/18 Amoxicillin/Clavulanate [Augmentin 1 tab PO BID #20 tab 09/04/18 875 MG-125 MG] Lidocaine 2% Viscous 5 ml MM TID #100 ml 09/04/18 Benzonatate [Tessalon Perle] 200 mg PO Q8 PRN #14 capsule 10/06/18 Oseltamivir Cap [Tamiflu] 75 mg PO BID #9 cap 10/06/18 traMADol [Ultram] 50 mg PO Q8 #10 tab 01/13/19 - Allergies Allergies/Adverse Reactions: Allergies Allergy/AdvReac Type Severity Reaction Status Date / Time No Known Allergies Allergy Verified 09/04/18 13:00 Review of Systems ROS Statement: Except As Marked, All Systems Reviewed And Found Negative Neurological: Positive for: Headache Physical Exam - Reviewed Nursing Documentation Reviewed: Yes Vital Signs Reviewed: Yes - Physical Exam Appears: Positive for: Non-toxic, No Acute Distress Head Exam: Positive for: ATRAUMATIC, NORMAL INSPECTION, NORMOCEPHALIC Skin: Positive for: Normal Color, Warm, DRY Eye Exam: Positive for: EOMI, Normal appearance, PERRL ENT: Positive for: Normal ENT Inspection Neck: Positive for: Normal, Painless ROM Cardiovascular/Chest: Positive for: Regular Rate, Rhythm Respiratory: Positive for: CNT, Normal Breath Sounds Gastrointestinal/Abdominal: Positive for: Normal Exam, Soft Back: Positive for: Normal Inspection Extremity: Positive for: Normal ROM Neurological/Psych: Positive for: Awake, Alert, Normal Tone - ECG O2 Sat by Pulse Oximetry: 95 Disposition - Clinical Impression Clinical Impression: Headache - Patient ED Disposition Is Patient to be Admitted: No Counseled Patient/Family Regarding: Studies Performed, Diagnosis, Need For Followup, Rx Given - Disposition Referrals: Bipin Lopez MD [Medical Doctor] - Disposition: Routine/Home Disposition Time: 12:40 Condition: FAIR Prescriptions: traMADol [Ultram] 50 mg PO Q8 #10 tab Instructions: Headache, Adult Forms: [facility] (Bulgarian)
--- NOTE | 2019-01-13 12:12 | CT ---
Date of service: 01/13/2019 PROCEDURE: CT HEAD WITHOUT CONTRAST. HISTORY: Rule out hemorrhage. COMPARISON: Comparison made with CT scan brain 04/14/2015. TECHNIQUE: Axial computed tomography images were obtained through the head/brain without intravenous contrast. Radiation dose: Total exam DLP = 880.63 mGy-cm. This CT exam was performed using one or more of the following dose reduction techniques: Automated exposure control, adjustment of the mA and/or kV according to patient size, and/or use of iterative reconstruction technique. FINDINGS: HEMORRHAGE: No intracranial hemorrhage. BRAIN: No mass effect or edema. No atrophy or chronic microvascular ischemic changes. VENTRICLES: Unremarkable. No hydrocephalus. CALVARIUM: Unremarkable. PARANASAL SINUSES: Unremarkable as visualized. No significant inflammatory changes. MASTOID AIR CELLS: Unremarkable as visualized. No inflammatory changes. OTHER FINDINGS: None. IMPRESSION: Intracranial hemorrhage.
[2019-01-13 12:57] VITALS: BP 132/66; PULSE 76; RESP 17; TEMP 97.9
== END 2019-01-13 12:45 | disposition home or self-care (01) ==
LOC: H.ER 10:05
DX: R51 Headache (principal)